=== PATIENT | female | born 1955 | race Caucasian/White ===

== ENCOUNTER 2019-02-23 09:28 | Day surgery (SDC) | payer OTHER ==
[~2019-02-23] VITALS: Ht 157.5 cm; Wt 73.0 kg
[~2019-02-23 09:28] MED LIST: ACETAMINOPHEN500 MG PO; CALCIUM 600 +1 EAC5 PO; CELEBREX200 MG PO; CENTRAL VITE F1 EACH PO; DOK250 MG PO; FLONASE2 SPRAY NS; FLUARIX QU60 MCG/0.7 IM; FLUTICASONE PRO16 GM NAS; HYDROMORPHONE HC4 MG PO; IRON18 MG PO; KEFLEX500 MG PO; LIPITOR10 MG PO; OXYCODONE HCL5 MG PO; PONARIS NASAL E30 ML NAS; SYNTHROID50 MCG PO; XARELTO10 MG PO
--- NOTE | 2019-02-23 10:45 | NUR ---
02/23/19 1045 Sheets,Alberta 1038 PT ARRIVED TO PACU ON 3L VIA KHOA, PT DENIES NAUSEA AND PAIN. RESP EVEN AND UNLABORED. 1042 MD AT BEDSIDE TALKING TO PT. PT WAKES EASILY TO VERBAL STIMULI. 1043 O2 REMOVED. 1044 PT ROLLED TO BACK AND HEAD OF BED INCREASED. PT DENIES DIZZINESS AND REPORTS "FEEL GOOD."
--- NOTE | 2019-02-24 13:17 | OR ---
[facility] [address], [place] [address] Signed DATE OF OPERATION: 02/23/2019 SURGEON: Karyna Carpenter MD PREOPERATIVE DIAGNOSIS: Colon screening. POSTOPERATIVE DIAGNOSIS: Normal colon to cecum. PROCEDURE: Total colonoscopy to cecum. ANESTHESIA: Intravenous sedation, fentanyl 100 mcg, Versed 3 mg. INDICATION: This 63-year-old white woman is a patient of Dr. Fabian Bates and underwent colonoscopy 13 years ago, which was normal. She has no symptoms of bleeding, diarrhea or constipation, and no family history of colon cancer. She is here for a screening colonoscopy. The risks of bleeding, infection, and perforation related to colonoscopy was reviewed with her. She understands and wished to proceed. FINDINGS: The prep was excellent. Complete colonoscopy was undertaken to the cecum without question. There was no sign of polyps, diverticular formation, colitis, or cancer. DESCRIPTION OF PROCEDURE: The patient was brought to the endoscopy suite and placed in lateral decubitus position, given intravenous sedation to the point of slurred speech and nystagmus. Perioperative antibiotics were given on the basis of prior knee replacement. After satisfactory intravenous sedation, digital rectal examination was undertaken showing no anorectal abnormality. An Olympus video colonoscope was passed in the rectum and manipulated throughout the colon ultimately intubating the cecum itself. The ileocecal valve and appendiceal orifice were normal. The scope was withdrawn from that point and examination throughout showed no sign of abnormality; specifically, no polyps, diverticular formation, colitis, or cancer. Retroflexed view was normal as well. The scope was removed and the patient was taken to recovery room in good condition. Electronically Signed By: KARYNA CARPENTER MD 02/24/19 1317 PATIENT NAME: JELANI ESCALERA OPERATIVE REPORT DATE OF : 53 REPORT #: [id number] PHYSICIAN: KARYNA CARPENTER MD PCP: FABIAN BATES DO REPORT IS CONFIDENTIAL AND NOT TO BE RELEASED WITHOUT AUTHORIZATION [facility] [address], [place] [address] Signed CONCLUDING DIAGNOSIS: Normal colon to cecum. PLAN: Recommend repeat colonoscopy in 10 years sooner if clinically indicated. She will return to the ongoing care of Dr. Bates. MD DOUG Ni/MODL /[id number] cc: Fabian Bates DO Copies: FABIAN BATES DO ~ Electronically Signed By: KARYNA CARPENTER MD 02/24/19 1317 PATIENT NAME: JELANI ESCALERA OPERATIVE REPORT DATE OF : 53 REPORT #: [id number] PHYSICIAN: KARYNA CARPENTER MD PCP: FABIAN BATES DO REPORT IS CONFIDENTIAL AND NOT TO BE RELEASED WITHOUT AUTHORIZATION
== END 2019-02-23 11:04 | disposition home or self-care (01) ==
LOC: OPS 09:28 → DS 09:28 → OPS 10:30
PROVIDERS: Surgery
PROC: 0DJD8ZZ Inspection of Lower Intestinal Tract, Via Natural or Artificial Opening Endoscopic (ICD-10-PCS; principal; 2019-02-23 10:30)
DX: Z12.11 Encounter for screening for malignant neoplasm of colon (principal); E03.9 Hypothyroidism, unspecified; E78.5 Hyperlipidemia, unspecified
CPT/HCPCS: 99153; G0500; J0694; J2250; J3010; J7060; J7121